=== PATIENT | female | born 1960 | race Caucasian/White ===

== ENCOUNTER → 2018-07-13 | Outpatient (CLI) | payer OTHER ==
[~2018-07-13] MED LIST: ACIDOPHILUS1 EAC1; BROVANA15 MCG/2 M; BUDESONIDE0.5 MG/2 M NEB; CALCIUM 500+D1 EACH; CARVEDILOL3.125 MG PO; CYMBALTA30 MG PO; FUROSEMIDE40 MG PO; IOPAMIDOL 370 MG/ML 200 ML INFUS..BTL INJ ONE; LEVOTHYROXINE75 MCG PO; LISINOPRIL10 MG PO; MONTELUKAST SOD10 MG PO; MORPHINE SULFAT30 M2 PO; NORCO 10-325 T1 EACH PO; OXYBUTYNIN CHLOR5 M1 PO; PANTOPRAZOLE SO20 MG PO; PROAIR HFA INH8.5 GM; SODIUM CHLORIDE 0.9% 250ML 250 ML ONE; SODIUM CHLORIDE 0.9% 50ML 50 ML ONE; TERBINAFINE15 GM; TIZANIDINE HCL4 MG PO; TOPIRAMATE25 MG PO; VITAMIN D1000 UNIT; WARFARIN SODIUM1 MG PO
--- NOTE | 2018-07-13 09:23 | Diagnostic Imaging Report ---
PROCEDURE: CT ABDOMEN \T\ PELVIS W/WO CONTRAST TECHNIQUE: The abdomen and pelvis were scanned utilizing a multidetector helical scanner from the diaphragm to the lesser trochanter before and after the IV administration of 100 cc of Isovue 370 and oral administration of 450 cc of water. Coronal and sagittal multiplanar reformations were obtained. COMPARISON: None. INDICATIONS: HEMATURIA FINDINGS: Exam is substantially limited due to body habitus and streak artifact as well as inability to tolerate prone positioning. LOWER THORAX: Scattered dependent atelectasis. Coronary atherosclerosis. HEPATOBILIARY: No focal hepatic lesions. No biliary ductal dilatation. SPLEEN: No splenomegaly. PANCREAS: No focal masses or ductal dilatation. Fatty atrophy of the pancreas. ADRENALS: No adrenal nodules. KIDNEYS/URETERS: No hydronephrosis or solid mass lesions. There are three right sided non-obstructive renal stones: a 7 mm right upper pole stone, a 9 mm interpolar stone, and a 6 mm lower pole stone. An apparent right ureteral hyperdensity on coronal series 401 image 66 is felt to be artifactual due to lack of hydronephrosis. Possible punctate 2 mm left lower pole renal stone on series 3 image 69 although limited evaluation in the presence of streak artifact. Delayed views demonstrate no evidence of urothelial lesion. PELVIC ORGANS/BLADDER: Limited evaluation due to streak artifact. PERITONEUM / RETROPERITONEUM: No free air or fluid. Limited evaluation for mesenteric stranding due to artifact. LYMPH NODES: No lymphadenopathy. VESSELS: Unremarkable. GI TRACT: Limited evaluation of the bowel secondary to streak artifact. No distention or wall thickening. Status post Aury en Y gastric bypass. BONES AND SOFT TISSUES: Limited evaluation due to hardware streak artifact and habitus. Status post spinal fixation of the lower lumbar spine. Small fat containing umbilical hernia. IMPRESSION: Exam is substantially limited due to body habitus and streak artifact as well as inability to tolerate prone positioning. Non-obstructive right sided renal stones measuring up to 9 mm. Possible punctate 2 mm left lower pole renal stone. No evidence of solid mass. Dictated by: BRUNILDA CARTAGENA M.D. on 07/13/2018 at 9:30 Electronically approved by: BRUNILDA CARTAGENA M.D. on 07/13/2018 at 9:30
== END ==
LOC: CT 07:10
PROVIDERS: ATTEND Urology
DX: R31.0 Gross hematuria (principal)
CPT/HCPCS: 74178; J7050; Q9967